=== PATIENT | female | born 1960 | race Caucasian/White ===

== ENCOUNTER 2024-02-14 06:27 | Day surgery (SDC) | payer OTHER, SELFPAY ==
[2024-02-14 14:06] VITALS: BMI 39.0
[2024-02-14 14:07] VITALS: BMI 39.0
[2024-02-14 14:21] VITALS: BP 155/94
[2024-02-14 15:17] VITALS: BP 127/72
[2024-02-14 15:30] VITALS: BP 110/77
[2024-02-14 15:45] VITALS: BP 130/76
== END 2024-02-14 15:56 | disposition home or self-care (01) ==
LOC: SDS 06:27
PROVIDERS: ATTENDING PHYSICIAN Internal Medicine Gastroenterology
DX: Z12.11 Encounter for screening for malignant neoplasm of colon (principal); D12.3 Benign neoplasm of transverse colon; K64.8 Other hemorrhoids
CPT/HCPCS: 45380; 88305

== ENCOUNTER → 2024-11-18 10:37 | Outpatient (REF) | payer OTHER, SELFPAY | LOC: RCS 10:37 | PROVIDERS: ATTENDING PHYSICIAN Student in an Organized Health Care Education/Training Program; FAMILY PHYSICIAN Family Medicine | DX: R00.2 Palpitations (principal) | CPT/HCPCS: 93225; 93226 ==